=== PATIENT | female | born 1940 | race Caucasian/White ===

== ENCOUNTER → 2017-10-22 | Outpatient (CLI) | payer OTHER ==
[~2017-10-22] MED LIST: LOSA100T6 PO
== END ==
LOC: RAD 13:14
PROVIDERS: ATTEND Nurse Practitioner Family
DX: M25.561 Pain in right knee (principal)

== ENCOUNTER → 2018-10-18 | Outpatient (CLI) | payer MEDICARE ==
[~2018-10-18] MED LIST changes: +LOSA100T14 PO; -LOSA100T6 PO
== END | disposition home or self-care (01) ==
LOC: RAD 13:35
PROVIDERS: ATTEND Nurse Practitioner Family
DX: M25.561 Pain in right knee (principal)

== ENCOUNTER 2018-11-10 12:07 | Emergency (ER) | payer MEDICARE ==
[~2018-11-10] VITALS: Ht 134.6 cm; Wt 70.6 kg
--- NOTE | 2018-11-10 13:21 | NUR ---
Assumed care of patient. C/O bilat knee pain, stating "I think my arthritis is back." Patient reports taking tylenol at home and was instructed by PCP to avoid NSAIDs "because of my blood pressure". MD at bedside. Will continue to monitor.
[2018-11-10] MEDS ORDERED: HYDROcodone/APAP 5/325 TABLET PO ONE (13:30)
[2018-11-10] MEDS ORDERED: ONDANSETRON ODT 4 MG PO ONE (13:30)
[2018-11-10] MEDS ORDERED: ONDANSETRON ODT 4 MG ONE (13:32)
[2018-11-10] MEDS ORDERED: HYDROcodone/APAP 5/325 TABLET ONE (13:33)
[2018-11-10 13:46] LABS: BASOPHILS # (AUTO) 0.02 x10^3/uL (0-0.1); BASOPHILS % (AUTO) 0 % (0-1); EOSINOPHILS # (AUTO) 0.07 x10^3/uL (0-0.4); EOSINOPHILS % (AUTO) 1 % (1-7); LYMPHOCYTES % (AUTO) 18 % (22-44); MD NO; MEAN CORPUSCULAR HEMOGLOBIN 32.9 pg (27.0-34.8); MEAN CORPUSCULAR HGB CONC 34.5 g/dL (32.4-35.8); MEAN CORPUSCULAR VOLUME 95.3 fL (80-100); MEAN PLATELET VOLUME 7.9 fL (7.4-10.4); MONOCYTES # (AUTO) 0.42 x10^3/uL (0.2-0.8); MONOCYTES % (AUTO) 8 % (2-9); NEUTROPHILS # (AUTO) 4.07 x10^3/uL (1.8-6.8); NEUTROPHILS % (AUTO) 73 % (42-75); PLATELET COUNT 264 x10^3/uL (130-400); RED BLOOD COUNT 3.86 x10^6/uL (3.82-5.3); RED CELL DISTRIBUTION WIDTH 13.2 % (9.6-15.2)
[2018-11-10 13:50] LABS: ANION GAP 6 mmol/L (5-15); CHLORIDE 98 mmol/L (98-107)
[2018-11-10 14:15] VITALS: BP 169/70
--- NOTE | 2018-11-10 14:27 | NUR ---
Ambulated with a steady gait with cane and RN assist to the restroom. Patient has FWW at home and states she will use that during ambulation at home.
[2018-11-10] MEDS ORDERED: NAPROXEN 500 MG TABLET PO ONE (14:30)
--- NOTE | 2018-11-10 15:25 | NUR ---
Patient/Caregiver given discharge instructions and they have confirmed that they understand the instructions. Patient ambulatory with steady gait.
== END 2018-11-10 15:26 | disposition home or self-care (01) ==
LOC: ED 15:19
DX: M17.11 Unilateral primary osteoarthritis, right knee (principal); M16.11 Unilateral primary osteoarthritis, right hip; M25.552 Pain in left hip; I10 Essential (primary) hypertension; E78.5 Hyperlipidemia, unspecified
CPT/HCPCS: 36415; 73502; 73564; 80048; 85025; 93970; 99284; Q0162